=== PATIENT | female | born 1955 | race Caucasian/White ===

== ENCOUNTER 2023-01-31 14:17 | Inpatient (IN) | payer MEDICARE ==
[~2023-01-31] VITALS: Ht 160 cm; Wt 64.4 kg
[2023-01-31] MEDS ORDERED: GABAPENTIN (14:35)
[2023-01-31] MEDS ORDERED: CLONAZEPAM (14:35)
[2023-01-31] MEDS ORDERED: TRAZODONE (14:35)
[2023-01-31] MEDS ORDERED: TOPIRAMATE (14:35)
[2023-01-31] MEDS ORDERED: LOMOTRIGINE (14:35)
[2023-01-31 14:50] LABS: BASOPHILS % (AUTO) 0.4 % (0.0-2.0); EOSINOPHILS % (AUTO) 0.6 % (0.0-7.0); HEMATOCRIT 34.5 % (31.2-41.9); HEMOGLOBIN 10.9 g/dL (10.9-14.3); LYMPHOCYTES % (AUTO) 19.9 % (20.5-51.5); MEAN CORPUSCULAR HEMOGLOBIN 25.6 uug (24.7-32.8); MEAN CORPUSCULAR HGB CONC 32 g/dL (32.3-35.6); MEAN CORPUSCULAR VOLUME 80.8 fL (75.5-95.3); MONOCYTES # (AUTO) 0.3 K/uL (0.1-1.30); MONOCYTES % (AUTO) 5.7 % (0.0-11.0); NEUTROPHILS # (AUTO) 3.6 K/uL (1.8-8.9); NEUTROPHILS % (AUTO) 73.4 % (38.5-71.5); PLATELET COUNT (AUTO) 384 K/uL (179-408); RED BLOOD CELL COUNT(AUTO) 4.27 MIL/uL (3.63-4.92); RED CELL DISTRIBUTION WIDTH 20.3 % (12.3-17.7); WHITE BLOOD COUNT (AUTO) 4.9 K/uL (3.8-11.8)
[2023-01-31 15:00] LABS: DIFFERENTIAL COMMENT 1
[2023-01-31 15:13] LABS: ALANINE AMINOTRANSFERASE 19 U/L (14-59); ALBUMIN 3.4 g/dL (3.4-5.0); ALKALINE PHOSPHATASE 102 U/L (50-136); ASPARTATE AMINOTRANSFERASE 13 U/L (15-37); BILIRUBIN,DIRECT 0.1 mg/dL (0.0-0.2); BILIRUBIN,TOTAL 0.4 mg/dL (0.2-1.0); CALCIUM 9.1 mg/dL (8.5-10.1); CARBON DIOXIDE 21 mmol/L (21-32); CHLORIDE 106 mmol/L (98-107); CREATININE 0.8 mg/dL (0.6-1.3); GLUCOSE 106 mg/dL (74-106); POTASSIUM 3.4 mmol/L (3.5-5.1); SODIUM SERUM 140 mmol/L (136-145); TOTAL PROTEIN, SERUM 7.3 g/dL (6.4-8.2); UREA NITROGEN, BLOOD 16 mg/dL (7-18)
[2023-01-31 15:15] LABS: ACETAMINOPHEN < 2.0 ug/mL (10-30)
[2023-01-31 15:23] LABS: ETHANOL < 3 MG/DL (0-10)
[2023-01-31] MEDS ORDERED: BLOOD SUGAR DIAGNOSTIC 1 EACH STRIP VI ONE (16:45)
[2023-01-31] MEDS ORDERED: LORAZEPAM 0.5 MG TABLET PO PRN (16:45)
[2023-01-31] MEDS ORDERED: MAG HYDROX/AL HYDROX/SIMETH 30 ML LIQUID UDC PO PRN (16:45)
[2023-01-31] MEDS ORDERED: MAGNESIUM HYDROXIDE 30 ML LIQUID UDC PO PRN (16:45)
[2023-01-31] MEDS: HYDROCORTISONE 2.5 % RECTAL CREAM 28.35 GM TUBE RC PRN (17:20)
[2023-01-31 17:59] VITALS: BP 127/67; TEMP 97.8; O2SAT 99
[2023-01-31 20:00] VITALS: BP 115/57; TEMP 98; O2SAT 97
[2023-01-31] MEDS: TEMAZEPAM 7.5 MG CAPSULE PO PRN (21:40)
[2023-02-01] MEDS: LORAZEPAM 1 MG TABLET PO PRN ×2 (01:32→06:05)
[2023-02-01 07:57] VITALS: BP 121/72; TEMP 98.4; O2SAT 100
[2023-02-01 08:26] LABS: ALBUMIN 3.9 g/dL (3.4-5.0); BILIRUBIN,TOTAL 0.4 mg/dL (0.2-1.0); CREATININE 0.9 mg/dL (0.6-1.3); POTASSIUM 3.4 mmol/L (3.5-5.1); TOTAL PROTEIN, SERUM 8.1 g/dL (6.4-8.2)
[2023-02-01 08:48] LABS: CALCIUM 9.2 mg/dL (8.5-10.1)
[2023-02-01] MEDS ORDERED: POTASSIUM CHLORIDE 20 MEQ TAB.PRT.SR PO ONE (09:15)
[2023-02-01] MEDS: CLONAZEPAM 1 MG TABLET PO PRN (11:17)
[2023-02-01] MEDS: HYDROCORTISONE 2.5 % RECTAL CREAM 28.35 GM TUBE RC PRN (11:31)
[2023-02-01] MEDS: ACETAMINOPHEN 325 MG TABLET PO PRN (13:15)
[2023-02-01] MEDS ORDERED: GABA600T12 PO (15:41)
[2023-02-01] MEDS: LAMOTRIGINE 25 MG TABLET PO SCH ×2 (16:09→21:37)
[2023-02-01 16:11] VITALS: BP 113/54; TEMP 98; O2SAT 100
[2023-02-01 20:00] VITALS: BP 118/58; TEMP 98; O2SAT 96
[2023-02-01] MEDS ORDERED: LAMOTRIGINE 100 MG TABLET PO SCH (21:00)
[2023-02-01] MEDS: TRAZODONE 100 MG TABLET PO SCH (21:37)
[2023-02-01] MEDS: ATORVASTATIN 20 MG TABLET PO SCH (21:37)
[2023-02-02 07:56] VITALS: BP 103/59; TEMP 98.4; O2SAT 98
[2023-02-02] MEDS: LAMOTRIGINE 25 MG TABLET PO SCH ×2 (09:00→20:01)
[2023-02-02] MEDS: CLONAZEPAM 1 MG TABLET PO PRN (09:07)
[2023-02-02] MEDS: ACETAMINOPHEN 325 MG TABLET PO PRN (13:07)
[2023-02-02 15:46] VITALS: BP 104/63; TEMP 98; O2SAT 98
[2023-02-02] MEDS: HYDROCORTISONE 2.5 % RECTAL CREAM 28.35 GM TUBE RC PRN (16:19)
[2023-02-02 19:52] VITALS: BP 118/68; TEMP 98.1; O2SAT 96
[2023-02-02] MEDS: ATORVASTATIN 20 MG TABLET PO SCH (20:00)
[2023-02-02] MEDS: TRAZODONE 100 MG TABLET PO SCH (20:00)
[2023-02-02] MEDS: GABAPENTIN 300 MG CAPSULE PO SCH (20:03)
[2023-02-02] MEDS ORDERED: GABAPENTIN PO SCH (21:00)
[2023-02-03] MEDS: CLONAZEPAM 1 MG TABLET PO PRN ×2 (02:21→11:04)
[2023-02-03 07:30] VITALS: BP 114/64; TEMP 98; O2SAT 98
[2023-02-03] MEDS: LAMOTRIGINE 25 MG TABLET PO SCH ×2 (08:59→20:06)
[2023-02-03] MEDS: HYDROCORTISONE 2.5 % RECTAL CREAM 28.35 GM TUBE RC PRN (09:48)
[2023-02-03] MEDS: ACETAMINOPHEN 325 MG TABLET PO PRN (15:00)
[2023-02-03 15:38] VITALS: BP 122/77; TEMP 98; O2SAT 98
[2023-02-03 19:53] VITALS: BP 114/65; TEMP 98.2; O2SAT 96
[2023-02-03] MEDS: GABAPENTIN 300 MG CAPSULE PO SCH (20:07)
[2023-02-03] MEDS: TRAZODONE 100 MG TABLET PO SCH (20:07)
[2023-02-03] MEDS: ATORVASTATIN 20 MG TABLET PO SCH (20:07)
[2023-02-03] MEDS: TEMAZEPAM 7.5 MG CAPSULE PO PRN (22:25)
[2023-02-04] MEDS: CLONAZEPAM 1 MG TABLET PO PRN ×2 (03:44→09:55)
[2023-02-04 07:43] VITALS: BP 99/54; TEMP 97.8; O2SAT 96
[2023-02-04] MEDS: ACETAMINOPHEN 325 MG TABLET PO PRN ×2 (07:55→14:17)
[2023-02-04] MEDS: HYDROCORTISONE 2.5 % RECTAL CREAM 28.35 GM TUBE RC PRN (07:56)
[2023-02-04] MEDS: LAMOTRIGINE 25 MG TABLET PO SCH ×2 (08:27→20:34)
[2023-02-04 16:06] VITALS: BP 95/53; TEMP 98; O2SAT 96
[2023-02-04 20:00] VITALS: BP 117/68; TEMP 98.1; O2SAT 97
[2023-02-04] MEDS: GABAPENTIN 300 MG CAPSULE PO SCH (20:34)
[2023-02-04] MEDS: ATORVASTATIN 20 MG TABLET PO SCH (20:34)
[2023-02-04] MEDS: TRAZODONE 100 MG TABLET PO SCH (20:34)
[2023-02-04] MEDS: TEMAZEPAM 7.5 MG CAPSULE PO PRN (22:48)
[2023-02-05] MEDS: CLONAZEPAM 1 MG TABLET PO PRN ×2 (04:15→14:16)
[2023-02-05 08:15] VITALS: BP 95/52; TEMP 98.1; O2SAT 98
[2023-02-05] MEDS: LAMOTRIGINE 25 MG TABLET PO SCH ×2 (08:35→20:25)
[2023-02-05] MEDS: ACETAMINOPHEN 325 MG TABLET PO PRN (09:15)
[2023-02-05 16:18] VITALS: BP 105/61; TEMP 98; O2SAT 98
[2023-02-05 19:47] VITALS: BP 127/61; TEMP 98.3; O2SAT 96
[2023-02-05] MEDS: GABAPENTIN 300 MG CAPSULE PO SCH (20:25)
[2023-02-05] MEDS: ATORVASTATIN 20 MG TABLET PO SCH (20:25)
[2023-02-05] MEDS: TRAZODONE 100 MG TABLET PO SCH (20:25)
[2023-02-05] MEDS: TEMAZEPAM 7.5 MG CAPSULE PO PRN (22:44)
[2023-02-06] MEDS: CLONAZEPAM 1 MG TABLET PO PRN ×2 (02:01→15:07)
[2023-02-06 07:52] VITALS: BP 92/59; TEMP 98.2; O2SAT 97
[2023-02-06] MEDS: LAMOTRIGINE 25 MG TABLET PO SCH ×2 (08:39→20:33)
[2023-02-06] MEDS: HYDROCORTISONE 2.5 % RECTAL CREAM 28.35 GM TUBE RC PRN ×2 (09:32→15:08)
[2023-02-06] MEDS: ACETAMINOPHEN 325 MG TABLET PO PRN ×2 (09:32→16:58)
[2023-02-06 16:03] VITALS: BP 90/51; TEMP 98; O2SAT 98
[2023-02-06 19:57] VITALS: BP 113/62; TEMP 98.1; O2SAT 97
[2023-02-06] MEDS: GABAPENTIN 300 MG CAPSULE PO SCH (20:33)
[2023-02-06] MEDS: TRAZODONE 100 MG TABLET PO SCH (20:33)
[2023-02-06] MEDS: ATORVASTATIN 20 MG TABLET PO SCH (20:33)
[2023-02-07] MEDS: TEMAZEPAM 7.5 MG CAPSULE PO PRN (02:46)
[2023-02-07 07:30] VITALS: BP 102/45; TEMP 98; O2SAT 98
[2023-02-07] MEDS: LAMOTRIGINE 25 MG TABLET PO SCH ×2 (09:05→20:11)
[2023-02-07] MEDS ORDERED: CLONAZEPAM 1 MG TABLET PO PRN (10:15)
[2023-02-07] MEDS: NUTRISOURCE FIBER 4 GM PACKET PO SCH ×2 (13:00→17:12)
[2023-02-07] MEDS: ACETAMINOPHEN 325 MG TABLET PO PRN (13:32)
[2023-02-07] MEDS: HYDROCORTISONE 2.5 % RECTAL CREAM 28.35 GM TUBE RC PRN (13:33)
[2023-02-07 15:28] VITALS: BP 118/59; TEMP 98; O2SAT 99
[2023-02-07 19:35] VITALS: BP 123/57; TEMP 98.1; O2SAT 96
[2023-02-07] MEDS: ATORVASTATIN 20 MG TABLET PO SCH (20:09)
[2023-02-07] MEDS: TRAZODONE 100 MG TABLET PO SCH (20:09)
[2023-02-07] MEDS: GABAPENTIN 300 MG CAPSULE PO SCH (20:09)
[2023-02-08] MEDS: TEMAZEPAM 7.5 MG CAPSULE PO PRN (01:56)
[2023-02-08] MEDS: CLONAZEPAM 0.5 MG TABLET PO PRN ×2 (04:20→11:13)
[2023-02-08 07:43] VITALS: BP 128/71; TEMP 98; O2SAT 98
[2023-02-08 07:44] LABS: BASOPHILS # (AUTO) 0.1 K/UL (0.0-0.2); BASOPHILS % (AUTO) 1.3 % (0.0-2.0); EOSINOPHILS # (AUTO) 0.4 K/uL (0.0-0.7); EOSINOPHILS % (AUTO) 5.2 % (0.0-7.0); HEMATOCRIT 35.4 % (31.2-41.9); HEMOGLOBIN 11.5 g/dL (10.9-14.3); LYMPHOCYTES # (AUTO) 1.9 K/uL (0.8-4.8); MEAN CORPUSCULAR HEMOGLOBIN 26.5 uug (24.7-32.8); MEAN CORPUSCULAR HGB CONC 32 g/dL (32.3-35.6); MEAN CORPUSCULAR VOLUME 81.8 fL (75.5-95.3); MONOCYTES # (AUTO) 0.6 K/uL (0.1-1.30); MONOCYTES % (AUTO) 7.9 % (0.0-11.0); NEUTROPHILS # (AUTO) 4.3 K/uL (1.8-8.9); NEUTROPHILS % (AUTO) 59.6 % (38.5-71.5); PLATELET COUNT (AUTO) 359 K/uL (179-408); RED BLOOD CELL COUNT(AUTO) 4.33 MIL/uL (3.63-4.92); RED CELL DISTRIBUTION WIDTH 19.9 % (12.3-17.7); WHITE BLOOD COUNT (AUTO) 7.1 K/uL (3.8-11.8)
[2023-02-08 07:48] LABS: DIFFERENTIAL COMMENT 1
[2023-02-08] MEDS: LAMOTRIGINE 25 MG TABLET PO SCH (08:17)
[2023-02-08] MEDS: NUTRISOURCE FIBER 4 GM PACKET PO SCH ×2 (08:18→12:19)
[2023-02-08 08:23] LABS: THYROID STIMULATING HORMONE 10.467 mIU/mL (0.358-3.740)
[2023-02-08 08:51] LABS: ALBUMIN 3.6 g/dL (3.4-5.0); BILIRUBIN,TOTAL 0.4 mg/dL (0.2-1.0); CALCIUM 8.8 mg/dL (8.5-10.1); CREATININE 0.9 mg/dL (0.6-1.3); MAGNESIUM 2.6 mg/dL (1.8-2.4); PHOSPHOROUS 3.1 mg/dL (2.5-4.9); POTASSIUM 3.4 mmol/L (3.5-5.1); TOTAL PROTEIN, SERUM 7.5 g/dL (6.4-8.2)
[2023-02-08] MEDS ORDERED: POTASSIUM CHLORIDE 20 MEQ TAB.PRT.SR PO ONE (11:00)
== END 2023-02-08 13:15 | DRG 885 ==
LOC: ER 14:17 → GPS 16:07
PROVIDERS: ADMIT Psychiatry & Neurology Psychosomatic Medicine; ATTEND Internal Medicine
DX: F31.9 Bipolar disorder, unspecified (principal); R45.851 Suicidal ideations; F41.9 Anxiety disorder, unspecified; E66.9 Obesity, unspecified; Z68.25 Body mass index [BMI] 25.0-25.9, adult; E03.9 Hypothyroidism, unspecified; D50.9 Iron deficiency anemia, unspecified; E87.6 Hypokalemia; G62.9 Polyneuropathy, unspecified; F40.00 Agoraphobia, unspecified; E78.5 Hyperlipidemia, unspecified; Z91.148 Patient's other noncompliance with medication regimen for other reason; K64.9 Unspecified hemorrhoids
CPT/HCPCS: 36415; 71045; 83550; 83735; 84100; 84443; 85025; A4663; G0480